=== PATIENT | male | born 1945 | race Caucasian/White ===

== ENCOUNTER 2022-01-30 16:14 | Emergency (ER) | payer OTHER ==
[~2022-01-30] VITALS: Ht 188 cm; Wt 99.8 kg
[~2022-01-30 16:14] MED LIST: CODE BLUE PARTICIPANT 1 EA MISC MC ONE; EPINEPHrine PFS 0.1 MG/ML SYR IVP ONE; SODIUM BICARBONATE 8.4% PFS 50 MEQ/50 ML SYR IVP ONE
--- NOTE | 2022-01-30 16:15 | NUR ---
pt bib full arrest by lina rdz, cpr in progress, bagged via bvm. witnessed arrest at [facility], 3 rounds of epi given group captain. io noted to right leg. iv inserted to right wrist #[id number]. cpr continued. see code sheet
--- NOTE | 2022-01-30 16:30 | NUR ---
PT INTUBATED BY DR GALE 7.10/11 LIP. +COLOR CHANGE, BILATERAL BREATH SOUNDS NOTED
[2022-01-30] MEDS ORDERED: CODE BLUE PARTICIPANT 1 EA MISC MC ONE (16:40)
[2022-01-30] MEDS ORDERED: EPINEPHrine 1 mg/mL 1 MG in DEXTROSE 5% 250 ML IV PRN (16:40)
[2022-01-30] MEDS ORDERED: CALCIUM CHLORIDE 10% 100 MG/ML SYR IVP ONE (16:46)
[2022-01-30] MEDS ORDERED: ATROPINE 1 MG/10 ML SYR IVP ONE (16:46)
[2022-01-30] MEDS ORDERED: EPINEPHrine PFS 0.1 MG/ML SYR IVP ONE ×2 (16:46→17:27)
[2022-01-30] MEDS ORDERED: AMIODARONE 150 MG/3 ML VIAL IV ONE (16:46)
[2022-01-30 16:59] LABS: BASOPHILS % (AUTO) 0.1 % (0.0-2.0); EOSINOPHILS # (AUTO) 0.1 K/uL (0-0.4); EOSINOPHILS % (AUTO) 2.3 % (0.0-4.0); LYMPHOCYTES % (AUTO) 51.7 % (20.5-51.1); MEAN CORPUSCULAR HEMOGLOBIN 30 pg (27-31); MEAN CORPUSCULAR HGB CONC 21 g/dL (33-37); MONOCYTES # (AUTO) 0.2 K/uL (0.8-1.0); NEUTROPHILS # (AUTO) 1.6 K/uL (1.8-7.7); NEUTROPHILS % (AUTO) 40.9 % (42.2-75.2); PLATELET COUNT (AUTO) 43 K/uL (140-450); RED BLOOD CELL COUNT(AUTO) 1.09 MIL/uL (4.20-6.10); RED CELL DISTRIBUTION WIDTH 22.2 % (11.6-13.7); WHITE BLOOD COUNT (AUTO) 3.8 K/uL (4.8-10.8)
[2022-01-30] MEDS ORDERED: AMIODARONE 450 MG in DEXTROSE 5% 250 ML IV ONE (17:05)
[2022-01-30 17:17] VITALS: BP 137/87
[2022-01-30] MEDS ORDERED: MAGNESIUM SULFATE 50% 1000 MG/2 ML VIAL IV ONE (17:27)
--- NOTE | 2022-01-30 17:38 | NUR ---
1600 PT BIBA IN FULL ARREST. CPR BEING ADMINISTERED AND BAGGING. TOOK OVER BAGGING AND CPR CONTINUED. PATIENT WAS INTUBATED BY DR GALE. TUBE SIZE 7.5 AT 23 LIP. PATIENT DID HAVE ROSC AND WAS PLACED ON VENTILATOR. SETTINGS ARE AC 20 VT 550 PEEP5 AND FIO2 100%.
--- NOTE | 2022-01-30 17:42 | NUR ---
1720 ABG DRAWN AND RESULTS GIVEN TO DR GALE. NO CHANGES ON VENT SETTINGS
--- NOTE | 2022-01-30 18:04 | NUR ---
pt time of 1574
--- NOTE | 2022-01-30 18:26 | NUR ---
spoke to deann morales from [employer]. ref # [id number]
--- NOTE | 2022-01-30 18:30 | NUR ---
dr jj pcp of pt paged to sign certificate.
[2022-01-30 18:31] LABS: CARBON DIOXIDE 5.5 mmol/L (21-32); POTASSIUM 0.5 mmol/L (3.5-5.1)
--- NOTE | 2022-01-30 18:33 | NUR ---
high lift mule operator called will call back
[2022-01-30 18:37] LABS: HEMOGLOBIN 3.3 g/dL (12.0-18.0)
[2022-01-30 18:38] LABS: HEMATOCRIT 15.7 % (36-52)
--- NOTE | 2022-01-30 19:11 | NUR ---
SPOKE TO DR BORDEN STATES WILL SIGN CERTIFICATE.
[2022-01-30] MEDS ORDERED: PRIMARY CRASH CART TRAY MC ONE (19:12)
--- NOTE | 2022-01-30 19:12 | NUR ---
ALL BELONGINGS GIVEN TO AT BEDSIDE.
--- NOTE | 2022-01-30 20:15 | NUR ---
SPOKE TO EVAN GARCES, [employer]. RELEASED BODY. #[id number]
[2022-01-30 23:45] VITALS: BP 137/87
--- NOTE | 2022-01-30 23:45 | NUR ---
PT [facility]
== END 2022-01-30 18:04 ==
LOC: MED 16:14
DX: I46.9 Cardiac arrest, cause unspecified (principal); E11.9 Type 2 diabetes mellitus without complications; I10 Essential (primary) hypertension; Z98.890 Other specified postprocedural states
CPT/HCPCS: 31500; 36415; 36600; 71045; 80053; 82803; 83880; 84484; 85025; 92950; 93005; 99291; 99292; J0171; J0461; J3475; J0282; J7060